=== PATIENT | female | born 1945 | race Caucasian/White ===

== ENCOUNTER 2019-12-16 07:15 | Day surgery (SDC) | payer MEDICARE, OTHER ==
[~2019-12-16 07:15] MED LIST: Buffered Lidocaine 1% SYRIN* 1 ML/SYRINGE INTRADERM ONE; Dexamethasone IV* 4 MG/ML 1 ML (4 MG) IV SLOW PU ONE; Famotidine IV* 10 MG/ML 2 ML (20 mg) IV ONE; Lactated Ringers 1000 ML Bag* 1,000 ML IV SCH
[2019-12-16] MEDS ORDERED: Dexamethasone IV* 4 MG/ML 1 ML (4 MG) ONE (07:58)
[2019-12-16] MEDS ORDERED: ceFAZolin 2 GM PREMIX in ORs 2 GM/50 ML BAG ONE (07:58)
[2019-12-16] MEDS ORDERED: Famotidine IV* 10 MG/ML 2 ML (20 mg) ONE (07:58)
[2019-12-16] MEDS ORDERED: Bupivacaine 0.25% SDV* 30 ML ONE (09:16)
[2019-12-16] MEDS ORDERED: Lidocaine 2% PF * 5 ML VIAL ONE (09:38)
[2019-12-16] MEDS ORDERED: Succinylcholine* 20 MG/ML 10 ML VIAL ONE (09:38)
[2019-12-16] MEDS ORDERED: Midazolam* 1 MG/ML 2 ML VIAL (2 MG) ONE (09:38)
[2019-12-16] MEDS ORDERED: fentaNYL* 50 MCG/ML 2 ML VIAL (100 MCG VIAL) ONE ×2 (09:38→10:31)
[2019-12-16] MEDS ORDERED: Propofol* 10 MG/ML 20 ML BTL ONE (09:38)
[2019-12-16] MEDS ORDERED: Lidocaine 1% w EPI 1:200,000* SDV 30 ML VIAL ONE (09:56)
[2019-12-16] MEDS ORDERED: HYDROcodone/ACETAMIN 5-325 MG* 1 TAB PO PRN (09:57)
[2019-12-16] MEDS ORDERED: oxyCODONE/Acetamin 5/325 MG* TAB PO PRN (09:57)
[2019-12-16] MEDS ORDERED: Naloxone* 0.4 MG/ML 1 ML VIAL IV PRN (09:57)
[2019-12-16] MEDS ORDERED: fentaNYL* 50 MCG/ML 2 ML VIAL (100 MCG VIAL) IV PRN (09:57)
[2019-12-16] MEDS ORDERED: DiMENhydriNATE IV* 50 MG/ML VIAL IV PUSH PRN (09:57)
[2019-12-16] MEDS ORDERED: Ketorolac INJ* 30 MG/ML 1 ML VIAL ONE (10:29)
[2019-12-16] MEDS ORDERED: Phenylephrine 40 MCG/ML SYRINGE ONE (10:34)
[2019-12-16] MEDS ORDERED: Ondansetron INJ* 2 MG/ML VIAL ONE (10:56)
--- NOTE | 2019-12-16 11:24 | BRIEFOPN ---
Brief Operative/Procedure Note - Operation Details Pre-Op Diagnosis: symptomatic cholelithiasis Post-Op Diagnosis: same Procedures: laparoscopic cholecystectomy Surgeon(s)/Proceduralists: Evette. Assist: JOSÉ MIGUEL Espinoza Anesthesia: GET. Fluids: 1300 ml RL Estimated Blood Loss: < 50 ml Findings: as above Specimen(s)/Culture(s) Description: gallbadder Complications: none
[2019-12-16] MEDS ORDERED: DiMENhydriNATE IV* 50 MG/ML VIAL ONE (12:16)
[2019-12-16 12:54] VITALS: BP 128/83
--- NOTE | 2019-12-16 13:14 | OP ---
CC: [facility] OPERATIVE REPORT: DATE OF OPERATION: 12/16/19 DATE OF : 49 SURGEON: Fortino Alas MD. CHIEF INNOVATION OFFICER: JOSÉ MIGUEL Kebede. ANESTHESIOLOGIST: Dr. Pena. ANESTHESIA: General with local. PRE-OP DIAGNOSIS: Chololithiasis and right upper quadrant abdominal pain POST-OP DIAGNOSIS: Chololithiasis and right upper quadrant abdominal pain OPERATIVE PROCEDURE: Laparoscopic cholecystectomy. ESTIMATED BLOOD LOSS: Minimal. IV FLUIDS: 1.5 L of crystalloid. WOUND CLASSIFICATION: II. COMPLICATIONS: None. DRAINS: None. SPECIMENS: Gallbladder. FINDINGS: Multiple small gallstones within the gallbladder. There were omental lesions to the gallb ladder itself, but no wall thickening or signs of acute cholecystitis. DESCRIPTION OF PROCEDURE: Written informed consent was obtained, the abdomen was marked with indelib le ink and preoperative antibiotics were administered. The patient was taken to the operating room, placed in the supine position. Sequential compression devices and warming blanket were applied. General anesthesia was administered and the abdomen was prepped and draped in usual sterile fashion. Time-out verification was completed. Small transverse incision was made just above the umbilicus at the midline, and peritoneal cavity was entered under direct vision. A 12 mm blunt port was inserted and the abdomen was insufflated to 15 mmHg. Under direct vision, an 11 mm epigastric port was placed and two 5 mm ports were placed on the right side of the abdominal wall. The liver appeared to be unremarkable. There was some omental adhesions to the gallbladder, which wa s nondistended. The wall was slightly whitish in color, but it was nondistended, easily graspable, a nd we elevated just above the liver bed. The omental adhesions were taken down using a combination of sharp dissection and cautery down and the infundibulum was identified. The gallbladder here was not ed to have multiple small gallstones in the infundibular area, but it was able to be grasped. Dissection was commenced by dividing the peritoneum along the medial and lateral aspects of the infun dibular aspect of the gallbladder to identify the cystic duct and artery as they entered the gallblad flo. I took a significant portion of the inferior part of the gallbladder off the liver bed using th e critical view technique to assure myself of these 2 structures. The cystic duct was of expected normal diameter/size and this was triply clipped and divided. The cy stic artery was also clipped and divided. The gallbladder was removed from the liver bed with cautery, placed in an Endo Catch bag and brought out through the umbilical incision. Careful evaluation of the liver bed revealed no bleeding. The area was irrigated and hemostasis was assured. All ports were removed under direct vision of the camera. The umbilical fascia was closed with inter rupted 0-Vicryl suture. The skin at all 4 incisions were approximated with subcuticular 4-0 Vicryl s uture. Steri-Strips were applied. The patient tolerated the procedure well, was taken to the [facility] room in stable condition. [id number]/[facility] #: [id number]
== END 2019-12-16 13:04 | disposition home or self-care (01) ==
LOC: OR 07:15
PROVIDERS: ATTEND Surgery
DX: K80.10 Calculus of gallbladder with chronic cholecystitis without obstruction (principal); I10 Essential (primary) hypertension; F41.9 Anxiety disorder, unspecified
CPT/HCPCS: 88304; J0330; J0690; J1100; J1240; J1885; J2001; J2250; J2405; J2704; J3010; J3490

== ENCOUNTER 2021-04-05 09:47 | Inpatient (IN) ==
[2021-04-05] MEDS ORDERED: NS 0.9% 1000 ml BAG 1,000 ML IV ONE ×2 (09:50→11:15)
[2021-04-05] MEDS ORDERED: Labetalol IV 5 MG/ML 20 ml VIAL IV PUSH ONE ×2 (09:53→09:59)
[2021-04-05] MEDS ORDERED: Labetalol IV 5 MG/ML 20 ml VIAL ONE (09:53)
[2021-04-05] MEDS ORDERED: Alteplase (100 mg Vial) 100 mg VIAL ONE (09:54)
[2021-04-05] MEDS ORDERED: ALTEPLASE IV ONE ×2 (10:02→10:03)
[2021-04-05 10:05] LABS: ABS Eosinophils 0.2 10^3/ul (0-0.6); ABS Lymphocytes 2.4 10^3/ul (1.0-4.8); ABS Monocytes 0.4 10^3/ul (0-0.8); ABS Neutrophils 2.4 10^3/ul (1.5-7.7); Eosinophil % 3.6 %; Hematocrit 43 % (35-47); Hemoglobin 14.6 g/dL (12.0-16.0); Lymphocyte % 44.1 %; Mean Corpuscular HGB Conc 34 g/dL (31-36); Mean Corpuscular Hemoglobin 32 pg (27-31); Mean Corpuscular Volume 93 fL (80-97); Mean Platelet Volume 8.1 fL (7.4-10.4); Platelet Count 229 10^3/uL (150-450); Red Cell Distribution Width 13 % (10-15); White Blood Count 5.4 10^3/uL (3.5-10.8)
[2021-04-05 10:22] LABS: Albumin/Globulin Ratio 1.2 (1-3); Calcium 9.6 mg/dL (8.6-10.3); EGFR African American 70.6 (>60); EGFR Non-African American 58.4 (>60); Globulin 3.3 g/dL (2-4); Potassium 3.5 mmol/L (3.5-5.0); Total Bilirubin 0.8 mg/dL (0.2-1.0); Total Protein 7.3 g/dL (6.4-8.9)
[2021-04-05 10:34] LABS: INR 1.01 (0.86-1.15)
[2021-04-05] MEDS ORDERED: KCL 20 MEQ/100 ML IVPREMIX 20 MEQ/100 ML BAG IV ONE (10:38)
[2021-04-05] MEDS ORDERED: niCARdipine 0.1MG/ML IVPREMIX 20 MG/200 ML BAG IV SCH (11:00)
[2021-04-05] MEDS ORDERED: Norepinephrine 16MCG/ML IVPRE 0 MCG/0 ML BAG IV ONE (11:42)
[2021-04-05] MEDS ORDERED: Norepinephrine 16MCG/ML IVPRE 4,000 MCG/250 ML BAG IV SCH (12:00)
[2021-04-05] MEDS ORDERED: Vasopressin 100 UNITS in D5W 250 ml BAG 245 ML IV SCH (12:30)
[2021-04-05 12:34] LABS: ABS Lymphocytes 0.7 10^3/ul (1.0-4.8); ABS Monocytes 0.2 10^3/ul (0-0.8); ABS Neutrophils 2.5 10^3/ul (1.5-7.7); Eosinophil % 1.2 %; Hematocrit 25 % (35-47); Hemoglobin 8.4 g/dL (12.0-16.0); Lymphocyte % 20.4 %; Mean Corpuscular HGB Conc 33 g/dL (31-36); Mean Corpuscular Hemoglobin 31 pg (27-31); Mean Corpuscular Volume 94 fL (80-97); Mean Platelet Volume 8.3 fL (7.4-10.4); Nucleated Red Blood Cells % 0.1; Platelet Count 139 10^3/uL (150-450); Red Blood Count 2.69 10^6 /uL (3.70-4.87); Red Cell Distribution Width 13 % (10-15); White Blood Count 3.5 10^3/uL (3.5-10.8)
[2021-04-05 16:07] LABS: ABS Lymphocytes 0.9 10^3/ul (1.0-4.8); ABS Monocytes 0.3 10^3/ul (0-0.8); ABS Neutrophils 5.4 10^3/ul (1.5-7.7); Eosinophil % 0.3 %; Hematocrit 43 % (35-47); Hemoglobin 14.3 g/dL (12.0-16.0); Lymphocyte % 13.6 %; Mean Corpuscular HGB Conc 33 g/dL (31-36); Mean Corpuscular Hemoglobin 31 pg (27-31); Mean Corpuscular Volume 94 fL (80-97); Nucleated Red Blood Cells % 0.1; Platelet Count 232 10^3/uL (150-450); Red Cell Distribution Width 13 % (10-15); White Blood Count 6.7 10^3/uL (3.5-10.8)
[2021-04-05] MEDS: NORMOSOL-R pH 7.4 1000 mL BAG 1,000 ML IV SCH (17:21)
[2021-04-05] MEDS ORDERED: LORazepam 2 mg VIAL 1 ml IV PUSH ONE (18:45)
[2021-04-05] MEDS ORDERED: Lorazepam PYXIS KEY PRN (18:45)
[2021-04-06] MEDS: NORMOSOL-R pH 7.4 1000 mL BAG 1,000 ML IV SCH ×2 (00:03→10:01)
[2021-04-06 20:31] LABS: TSH Ultra Thyroid Stim Horm 1.47 mcIU/mL (0.34-5.60)
[2021-04-07 05:05] LABS: Hematocrit 39 % (35-47); Hemoglobin 13.6 g/dL (12.0-16.0); Mean Corpuscular HGB Conc 35 g/dL (31-36); Mean Corpuscular Hemoglobin 33 pg (27-31); Mean Corpuscular Volume 93 fL (80-97); Mean Platelet Volume 8.6 fL (7.4-10.4); Platelet Count 212 10^3/uL (150-450); Red Blood Count 4.18 10^6 /uL (3.70-4.87); Red Cell Distribution Width 13 % (10-15); White Blood Count 5.4 10^3/uL (3.5-10.8)
[2021-04-07 05:23] LABS: Calcium 9.1 mg/dL (8.6-10.3); EGFR African American 93.1 (>60); EGFR Non-African American 76.9 (>60); Magnesium 1.9 mg/dL (1.9-2.7); Phosphorus 3.1 mg/dL (2.5-5.0); Potassium 3.9 mmol/L (3.5-5.0)
[2021-04-07] MEDS: Heparin 5000 UNITS/ML 1 mL VIAL SUBCUT SCH (22:40)
[2021-04-08] MEDS: Heparin 5000 UNITS/ML 1 mL VIAL SUBCUT SCH ×2 (06:08→13:42)
[2021-04-08 15:17] VITALS: BP 158/68
== END 2021-04-08 17:35 | disposition home or self-care (01) | DRG 62 ==
LOC: ED 09:47 → ICU 10:38 → MEDTELE 04-06 18:22
PROVIDERS: ADMIT Internal Medicine; ATTEND Pediatrics